=== PATIENT | male | born 1975 | race American Indian/Alaskan Native ===

== ENCOUNTER 2020-12-12 07:18 | Day surgery (SDC) | payer OTHER ==
[2020-12-12] MEDS ORDERED: ASPIRIN EC 325 MG TAB PO ONE (07:55)
[2020-12-12] MEDS ORDERED: SODIUM CHLORIDE 0.9% 500 ML 500 ML IV SCH (08:00)
[2020-12-12] MEDS ORDERED: VERAPAMIL 5 MG/2 ML INJ ONE (08:12)
[2020-12-12] MEDS ORDERED: HEPARIN/NS 5000 UNIT/500ML 1,000 ML IR ONE (08:12)
[2020-12-12] MEDS ORDERED: HEPARIN 10,000 UNITS/10 ML VIAL ONE (08:12)
[2020-12-12] MEDS ORDERED: NITROGLYCERIN SYRINGE 3 ML ONE (08:13)
[2020-12-12 08:18] LABS: Basophils % (Auto) 0.6 % (0.0-1.8); Eosinophils # (Auto) 0.1 K/mm3 (0.0-0.4); Eosinophils % (Auto) 1.7 % (0.0-4.3); Hematocrit 42.7 % (35.5-45.6); Hemoglobin 14.5 gm/dl (11.8-15.2); Lymphocytes # (Auto) 2.1 K/mm3 (1.2-5.4); Lymphocytes % (Auto) 32.1 % (13.4-35.0); Mean Corpuscular HGB Conc 34 % (32-34); Mean Corpuscular Volume 92 fl (84-94); Monocytes # (Auto) 0.5 K/mm3 (0.0-0.8); Monocytes % (Auto) 7.4 % (0.0-7.3); Platelet Count 237 K/mm3 (140-440); Red Blood Count 4.62 M/mm3 (3.65-5.03); Red Cell Distribution Width 13.6 % (13.2-15.2)
[2020-12-12 08:27] LABS: INR 0.87 (0.87-1.13)
[2020-12-12 08:28] LABS: Partial Thromboplastin Time 30.1 Sec. (24.2-36.6)
[2020-12-12 08:30] LABS: Blood Urea Nitrogen 9 mg/dL (9-20); Calcium 8.7 mg/dL (8.4-10.2); Hemolysis Index 0
[2020-12-12 08:40] LABS: BUN/Creatinine Ratio 13
[2020-12-12] MEDS: MIDAZOLAM 2 MG/2 ML INJ ONE ×2 (09:28→09:37)
[2020-12-12] MEDS: fentaNYL 100 MCG/2 ML INJ ONE ×2 (09:28→09:37)
[2020-12-12] MEDS: LIDOCAINE (2%) 20 MG/1 ML VIAL 20 ML MDV INFILTRATI ONE ×2 (09:29→09:39)
[2020-12-12] MEDS ORDERED: HYDROcodone/ACETAMINOPHEN 5-325 MG TAB PO PRN (10:08)
[2020-12-12] MEDS ORDERED: traMADol 50 MG TAB PO PRN (10:08)
--- NOTE | 2020-12-12 10:21 | Cardiac Catherization Report ---
LEFT HEART CATHETERIZATION ORDERING PHYSICIAN: ____. CLINICAL INFORMATION: This is a 45-year-old -[place] gentleman who is a smoker. Family history of premature coronary artery disease. He has been having exertional angina with a markedly abnormal treadmill stress test, here for left heart catheterization. Procedure was done with moderate sedation started at 9:37, finished at 9:49, 12 minutes of moderate sedation. Procedure was done via the right radial artery, sterile technique, local anesthesia, 6-Somali radial sheath inserted. PROCEDURE FINDINGS: Left system engaged with JL3.5 catheter, left main is large, proximal and mid patent and distal 80-90% and trifurcates into a large caliber LAD that is patent. Diagonal 1 is a medium caliber vessel, is patent. Ramus is a large caliber vessel, is patent. Circumflex is a medium to large caliber and patent, goes into a medium caliber OM1 that is patent. RCA engaged with JR4 catheter, is a large dominant vessel, is patent. PDA, PLV are medium caliber vessel, is patent. Normal LV function, patent. LV gram done in the ISABEL and WILDE view shows normal LV function, LVEDP at 30 mmHg, LV is 140. Aortic is 139/76. No gradient across the aortic valve on pullback. A 5-Somali catheters all taken over guidewire, 6-Somali radial sheath was discontinued. Radial band applied. No hematoma, no bleeding. SUMMARY: Left main distal 80-90% LAD patent, ramus patent, circumflex patent, OM1 patent. RCA large, dominant, patent. Normal LV function. The patient will be transferred to [place] for a bypass surgery. Discussed with the patient and the patient's family. JOB# [id number] ULISES/GE
--- NOTE | 2020-12-12 13:12 | Short Stay Summary ---
Short Stay Documentation Date of service: 12/12/20 - History H&P: obtained from office - Allergies and Medications Current Medications: Allergies No Known Allergies Allergy (Verified 12/12/20 07:55) Home Medications Medication Instructions Recorded Confirmed Last Taken Type Furosemide [Lasix] 20 mg PO QDAY 12/12/20 12/12/20 12/11/20 History Pravastatin Sodium [Pravastatin] 10 mg PO QHS 12/12/20 12/12/20 12/11/20 History Active Medications Hydrocodone Bitart/Acetaminophen (Hydrocodone/Acetaminophen 5-325 Mg Tab) 1 each PO Q4H PRN PRN Reason: Pain, Moderate (4-6) Stop: 12/12/20 20:00 Sodium Chloride (Nacl 0.9% 500 Ml) 500 mls @ 50 mls/hr IV DIRECT EDWARD Stop: 12/12/20 17:59 Last Admin: 12/12/20 09:10 Dose: 50 mls/hr Documented by: Tramadol HCl (Tramadol 50 Mg Tab) 50 mg PO Q4H PRN PRN Reason: Pain, Mild (1-3) Stop: 12/12/20 23:00 - Brief post op/procedure progress note Date of procedure: 12/12/20 Pre-op diagnosis: abnormal stress test Post-op diagnosis: other (CAD) Procedure: [facility] - see dictated cath report Anesthesia: local Estimated blood loss: none Condition: stable - Hospital course Hospital course: [facility] shows significant left main disease - see dictated cath report. Pt to tx to [facility] for possible revascularization. - Disposition Condition at discharge: Stable Disposition: [id number] - Discharge Diagnoses (1) CAD (coronary artery disease) Status: Chronic Short Stay Discharge Plan Diet: low fat, low cholesterol, low salt Wound: open to air, keep clean and dry, per your surgeon's advice Follow up with: SULEMAN CASIANO NP [Primary Care Provider] - 7 Days KEYONNA CORREIA MD [Staff Physician] - 7 Days
[2020-12-12 17:13] VITALS: BP 154/79
== END 2020-12-12 17:45 | disposition other institution (70) ==
LOC: CATHLABREC 07:18
PROVIDERS: ATTEND Internal Medicine
DX: R94.39 Abnormal result of other cardiovascular function study (principal); I25.118 Atherosclerotic heart disease of native coronary artery with other forms of angina pectoris; E78.49 Other hyperlipidemia; Z98.890 Other specified postprocedural states; Z79.899 Other long term (current) drug therapy; Z87.891 Personal history of nicotine dependence; Z83.3 Family history of diabetes mellitus; Z82.49 Family history of ischemic heart disease and other diseases of the circulatory system
CPT/HCPCS: 36415; 80048; 85025; 85610; 85730; 93005; 93458; 99156; C1894; J1644; J2250; J3010; J7040; Q9967

== ENCOUNTER 2021-04-29 18:07 | Emergency (ER) | payer OTHER ==
[2021-04-29] MEDS ORDERED: NEOMY 3.5 MG/BACIT 400 UNITS/POLY B 5000 UNITS/GM OINT PACKET TP ONE (19:39)
[2021-04-29] MEDS ORDERED: TETANUS,DIPH,PERTUSS(ACELL) VACCINE 0.5 ML SYRINGE IM ONE (19:39)
--- NOTE | 2021-04-29 19:51 | Emergency Department Report ---
- General Chief Complaint: Wound/Laceration Stated Complaint: CUT LT THIGH Time Seen by Provider: 04/29/21 19:39 Source: patient Mode of arrival: Ambulatory Limitations: No Limitations - History of Present Illness Initial Comments: Patient is a 46-year-old male presents emergency room with complaints of a wound to the left thigh that occurred earlier this afternoon. Patient states he was using a tongue trimmer and accidentally bumped against his leg. He states initially there was some bleeding but it improved on its own. He is ambulating without difficulty. He denies any pain in the leg. He is unsure of his last tetanus immunization. He denies any numbness or weakness. Past medical history of CAD and hypertension. No allergies to medications. - Related Data Home Medications Medication Instructions Recorded Confirmed Last Taken Furosemide [Lasix] 20 mg PO QDAY 12/12/20 12/12/20 12/11/20 Pravastatin Sodium [Pravastatin] 10 mg PO QHS 12/12/20 12/12/20 12/11/20 Previous Rx's Medication Instructions Recorded Last Taken Type Neomycin/Bacitracin/Polymyxinb 1 applicatio TP BID #14 oint...g. 04/29/21 Unknown Rx [Triple Antibiotic Ointment] Allergies Allergy/AdvReac Type Severity Reaction Status Date / Time No Known Allergies Allergy Verified 12/12/20 07:55 ED Review of Systems ROS: Stated complaint: CUT LT THIGH Other details as noted in HPI Comment: All other systems reviewed and negative ED Past Medical Hx - Past Medical History Previous Medical History?: Yes Hx Hypertension: Yes Additional medical history: CAD - Surgical History Past Surgical History?: Yes Hx Open Heart Surgery: Yes - Social History Smoking Status: Former Smoker Substance Use Type: None - Medications Home Medications: Home Medications Medication Instructions Recorded Confirmed Last Taken Type Furosemide [Lasix] 20 mg PO QDAY 12/12/20 12/12/20 12/11/20 History Pravastatin Sodium [Pravastatin] 10 mg PO QHS 12/12/20 12/12/20 12/11/20 History Neomycin/Bacitracin/Polymyxinb 1 applicatio TP BID #14 oint...g. 04/29/21 Unknown Rx [Triple Antibiotic Ointment] ED Physical Exam - General Limitations: No Limitations General appearance: alert, in no apparent distress - Head Head exam: Present: atraumatic, normocephalic - Eye Eye exam: Present: normal appearance - ENT ENT exam: Present: mucous membranes moist - Neurological Exam Neurological exam: Present: alert, oriented X3 - Psychiatric Psychiatric exam: Present: normal affect, normal mood - Skin Skin exam: Present: warm, dry, other (2 cm skin avulsion present to the left anterior thigh, no active bleeding, only involves the skin layers, no subcutaneous fat invovlement, no foreign body, no muscle/tendon involvement, FROM of the LLE, neurovascularly intact) ED Course Vital Signs 04/29/21 04/29/21 19:32 20:20 Temperature 98.7 F 98.5 F Pulse Rate 85 84 Respiratory 18 18 Rate Blood Pressure 137/72 Blood Pressure 112/62 [Left] O2 Sat by Pulse 99 99 Oximetry ED Medical Decision Making - Medical Decision Making Patient is a 46-year-old male presents emergency room with complaints of a wound to the left thigh that occurred earlier this afternoon. Patient states he was using a tongue trimmer and accidentally bumped against his leg. He states initially there was some bleeding but it improved on its own. He is ambulating without difficulty. He denies any pain in the leg. He is unsure of his last tetanus immunization. He denies any numbness or weakness. Past medical history of CAD and hypertension. No allergies to medications. vss. on exam: 2 cm skin avulsion present to the left anterior thigh, no active bleeding, only involves the skin layers, no subcutaneous fat invovlement, no foreign body, no muscle/tendon involvement, FROM of the LLE, neurovascularly intact. Examination appears consistent with superficial skin avulsion. Wound care performed by nurse and patient given Tdap while in the emergency department. Patient given prescription for antibiotic ointment. Advised patient Please use medication as prescribed. Please keep area clean, dry, covered. Wash with antibacterial soap and water pat dry. No hot tub, no pool, no soaking water. Follow-up with your primary care doctor for reexamination. Return to emergency room for new or worsening symptoms. Critical care attestation.: If time is entered above; I have spent that time in minutes in the direct care of this critically ill patient, excluding procedure time. ED Disposition Clinical Impression: Skin avulsion Disposition: - TO HOME OR SELFCARE Is pt being admited?: No Does the pt Need Aspirin: No Condition: Stable Instructions: Deep Skin Avulsion Prescriptions: Neomycin/Bacitracin/Polymyxinb [Triple Antibiotic Ointment] 1 applicatio TP BID #14 oint...g. Referrals: your, primary care doctor [Other] - 2-3 Days Time of Disposition: 19:50 Print Language: COL[place]
[2021-04-29 21:45] VITALS: BP 112/62
== END 2021-04-29 20:20 | disposition home or self-care (01) ==
LOC: ED 18:07
DX: S71.102A Unspecified open wound, left thigh, initial encounter (principal); I10 Essential (primary) hypertension; Z98.890 Other specified postprocedural states; Z87.891 Personal history of nicotine dependence; Z79.899 Other long term (current) drug therapy; W26.9XXA Contact with unspecified sharp object(s), initial encounter; Y93.89 Activity, other specified; Y92.89 Other specified places as the place of occurrence of the external cause; Y99.8 Other external cause status
CPT/HCPCS: 90471; 90715; 99283; A6250